=== PATIENT | female | born 2000 | race Caucasian/White ===

== ENCOUNTER 2020-11-14 13:49 | Emergency (ER) | payer SELFPAY ==
[2020-11-14] MEDS ORDERED: Ketorolac 30 MG/ML SDV IM ONE (14:23)
[2020-11-14] MEDS ORDERED: Diazepam 5 MG Tab PO ONE (14:23)
--- NOTE | 2020-11-14 15:09 | EDM.PDOC ---
ED HPI GENERAL MEDICAL PROBLEM - General Chief Complaint: Back Pain or Injury Stated Complaint: lumbar pain Time Seen by Provider: 11/14/20 14:17 Source of Information: Reports: Patient - History of Present Illness INITIAL COMMENTS - FREE TEXT/NARRATIVE: Izabela is a 20 y/o female who comes to the ER with pain in her low back region. She injured her back while working [place] the [employer] a couple weeks ago. She has been seeing the Ramya Brown PAC at the [facility] and last week was given anti-inflammatories and steroids. On Wednesday she was again seen at the clinic and given Flexeril. Xrays were done at the clinic and nothing found. Today her pain is almost unbearable. She describes it has low pressure in the sacral region and then a "ripping and tearing around her hips". Rates 09/28. Took Ibuprofen 400mg po at 0530 along with a Flexeril at that time. Discussion was had my PCP to have CT. She tried to get into the clinic today, but there were no openings and she was advised to present to the ER. Denies any numbness or tingling in her arms or legs, no loss of bowel or bladder function. Lumbar Pain Score (Numeric/FACES): 7 - Related Data Allergies Allergy/AdvReac Type Severity Reaction Status Date / Time azithromycin [From Zithromax] Allergy Hives Verified 11/14/20 14:19 Penicillins Allergy Hives Verified 11/14/20 14:19 Home Meds: Home Meds Cyclobenzaprine [Flexeril] 10 mg PO Q8H PRN 11/14/20 [History] Non-Formulary Medication [NF Drug] 1 each PO ASDIRECTED 11/14/20 [History] Non-Formulary Medication [NF Drug] 1 each PO ASDIRECTED 11/14/20 [History] traMADol [Ultram] 50 mg PO TID PRN #10 tab 11/14/20 [Rx] Past Medical History Psychiatric History: Reports: None - Past Surgical History HEENT Surgical History: Reports: Oral Surgery Social & Family History - Tobacco Use Tobacco Use Status *Q: Current Every Day Tobacco User Years of Tobacco use: 2 Packs/Tins Daily: 0.3 Review of Systems - Review of Systems Review Of Systems: See Below Constitutional: Reports: No Symptoms Eyes: Reports: No Symptoms Ears: Reports: No Symptoms Nose: Reports: No Symptoms Mouth/Throat: Reports: No Symptoms Respiratory: Reports: No Symptoms Cardiovascular: Reports: No Symptoms GI/Abdominal: Reports: No Symptoms Genitourinary: Reports: No Symptoms Musculoskeletal: Reports: Back Pain Skin: Reports: No Symptoms Neurological: Reports: No Symptoms Psychiatric: Reports: No Symptoms ED EXAM, GENERAL - Physical Exam Exam: See Below General Appearance: Alert, WD/WN, No Apparent Distress (Young adult female.) Ears: Hearing Grossly Normal Throat/Mouth: Normal Inspection, Normal Voice Head: Atraumatic, Normocephalic Respiratory/Chest: No Respiratory Distress, Lungs Clear, Chest Non-Tender Cardiovascular: Normal Peripheral Pulses, Regular Rate, Rhythm, No Murmur GI/Abdominal: Soft, Non-Tender (Female) Exam: Deferred Rectal (Female) Exam: Deferred Back Exam: Normal Inspection, Other (+tenderness noted over SI joints). No: CVA Tenderness (L), CVA Tenderness (R), Vertebral Tenderness Extremities: Normal Inspection, Normal Range of Motion, No Pedal Edema, Normal Capillary Refill Neurological: Alert, Oriented, CN II-XII Intact, Normal Cognition, No Motor/Sensory Deficits Psychiatric: Normal Affect, Normal Mood Skin Exam: Warm, Dry, Intact, Normal Color Course - Vital Signs Text/Narrative:: 1418 The patient was seen by the [employer]. She was given Toradol 30mg IM and Valium 10mg po. Ramya Brown PA-C contacted and confirmed that other than xrays, no further imaging had been set up for patient. CT Thoracic and Lumbar Spine WO ordered. 1545 Still rates pain 5/[address] results pending. Fentanyl 100mcg IM for pain given. [address] results from [place] [facility], no acute findings. Feeling better now after the Fentanyl. Discussed possibility of need for MRI. Will have pt continue plan as by PCP with PT, anti-inflammatories, & muscle relaxers. She was given written instructions and then left the ER in stable condition. Last Recorded V/S: Last Vital Signs Temp 37.1 C 11/14/20 13:55 Pulse 120 H 11/14/20 13:55 Resp 16 11/14/20 13:55 BP 125/78 11/14/20 13:55 Pulse Ox 99 11/14/20 13:55 - Orders/Labs/Meds Orders: Active Orders 24 hr Category Date Time Status Lumbar Spine wo Cont [CT] Stat Exams 11/14/20 14:44 Taken Thoracic Spine wo Cont [CT] Stat Exams 11/14/20 14:44 Taken fentaNYL [Sublimaze] Med 11/14/20 15:45 Once 100 mcg IM ONETIME ONE Meds: Medications Discontinued Medications Generic Name Dose Route Start Last Admin Trade Name Freq PRN Reason Stop Dose Admin Diazepam 10 mg 11/14/20 14:23 11/14/20 14:40 Diazepam 5 Mg Tab PO 11/14/20 14:24 10 mg ONETIME ONE Administration Ketorolac Tromethamine 30 mg 11/14/20 14:23 11/14/20 14:39 Ketorolac 30 Mg/Ml Sdv IM 11/14/20 14:24 30 mg ONETIME ONE Administration - Radiology Interpretation Free Text/Narrative:: CT T Spine/L Spine=negative (See final reports) Departure - Departure Time of Disposition: 16:15 Disposition: Home, Self-Care 01 Condition: Good Clinical Impression: Acute low back pain Qualifiers: Back pain laterality: bilateral Sciatica presence: without sciatica Qualified Code(s): M54.5 - Low back pain - Discharge Information *PRESCRIPTION DRUG MONITORING PROGRAM REVIEWED*: Yes *COPY OF PRESCRIPTION DRUG MONITORING REPORT IN PATIENT KADEN: Not Applicable Prescriptions: traMADol [Ultram] 50 mg PO TID PRN #10 tab PRN Reason: Pain Instructions: Acute Back Pain, Adult, Managing Pain Without Opioids Referrals: Solange Brown PA-C [Primary Care Provider] - Forms: ED Department Discharge Additional Instructions: -Ibuprofen 200mg 3 tabs orally every 6 hours as needed (Use over the counter meds) -Cyclobenzaprine as prescribed by your PCP -Acetaminophen 325mg 3 tablets oral every 6 hours (Use over the counter meds) -Tramadol 50mg oral three times a day as needed for severe pain #10(Rx) -Ice or heat applied to the area as needed -Rest, Increase activity as able. Follow activity/work instructions per PAC. Aime -Follow up with your Primary Care Provider to arrange further diagnostic testing if the pain persists. Keep your upcoming PT appt. -Return to the ER if any other concerns Sepsis Event Note (ED) - Evaluation Sepsis Screening Result: No Definite Risk - Focused Exam Vital Signs: Vital Signs Temp Pulse Resp BP Pulse Ox 11/14/20 13:55 37.1 C 120 H 16 125/78 99 - Problem List & Annotations (1) Acute low back pain SNOMED Code(s): 029154938 Code(s): M54.5 - LOW BACK PAIN Status: Acute Current Visit: Yes Annotation/Comment:: -CT negative in ER -Continue meds as prescribed by PCP. Will add Tramadol for severe pain. -PT appt set up -Continue care with PCP and may need MRI if pain persists Qualifiers: Back pain laterality: bilateral Sciatica presence: without sciatica Qualified Code(s): M54.5 - Low back pain - My Orders Last 24 Hours: My Active Orders 11/14/20 14:44 Lumbar Spine wo Cont [CT] Stat Thoracic Spine wo Cont [CT] Stat 11/14/20 15:45 fentaNYL [Sublimaze] 100 mcg IM ONETIME ONE - Assessment/Plan Last 24 Hours: My Active Orders 11/14/20 14:44 Lumbar Spine wo Cont [CT] Stat Thoracic Spine wo Cont [CT] Stat 11/14/20 15:45 fentaNYL [Sublimaze] 100 mcg IM ONETIME ONE Plan: See below
[2020-11-14] MEDS ORDERED: fentaNYL 100 MCG/2 ML SDV IM ONE (15:45)
== END 2020-11-14 16:30 | disposition home or self-care (01) ==
LOC: LL.ED 13:49
DX: M54.5 Low back pain (principal); Z88.1 Allergy status to other antibiotic agents; Z88.0 Allergy status to penicillin; Z72.0 Tobacco use
CPT/HCPCS: 72128; 72131; 96372; 99283; 99283-25; A9270-GY; J1885; J3010

== ENCOUNTER 2021-07-20 17:06 | Observation (INO) | payer MEDICAID ==
[2021-07-20] MEDS ORDERED: Lactated Ringers 1,000 ML IV SCH ×2 (17:30→19:15)
[2021-07-20 18:09] LABS: CHLORIDE,CL 103 mmol/L (98-107); SODIUM,NA 139 mmol/L (136-145)
[2021-07-20] MEDS ORDERED: Ondansetron 4 MG/2 ML SDV IVPUSH ONE (18:58)
[2021-07-20] MEDS ORDERED: Ondansetron 4 MG/2 ML SDV ONE (19:06)
[2021-07-20] MEDS ORDERED: Non-Formulary Medication 1 Each (Propranolol [Inderal] 10 MG Tablet) PO PRN (20:05)
[2021-07-21] MEDS ORDERED: Ondansetron 4 MG Tab.DIS PO PRN (01:05)
[2021-07-21] MEDS ORDERED: Acetaminophen 325 MG Tab PO PRN (01:05)
[2021-07-21] MEDS: Lactated Ringers 1,000 ML IV SCH ×2 (01:25→09:51)
[2021-07-21 07:29] LABS: ANION GAP 10.1 meq/L (7-15); CHLORIDE,CL 103 mmol/L (98-107); SODIUM,NA 138 mmol/L (136-145)
[2021-07-21] MEDS ORDERED: Non-Formulary Medication 1 Each (Fluoxetine Hcl [Fluoxetine Hcl] 40 MG Capsule) PO SCH (08:00)
[2021-07-21] MEDS ORDERED: FLUoxetine 20 MG Cap PO SCH (08:00)
[2021-07-21] MEDS ORDERED: Magnesium Sulfate/Water 2 GM in Premix Bag 1 BAG IV ONE (09:03)
[2021-07-21] MEDS ORDERED: Potassium Chloride 20 MEQ Tab.ER PO ONE (09:04)
== END 2021-07-21 13:55 | disposition home or self-care (01) ==
LOC: LL.ED 17:06 → MERGE 20:00 → LL.MS 20:00
PROVIDERS: ADMIT Hospitalist; ATTEND Hospitalist
DX: R19.7 Diarrhea, unspecified (principal); R11.2 Nausea with vomiting, unspecified; F41.8 Other specified anxiety disorders; F17.210 Nicotine dependence, cigarettes, uncomplicated; E86.1 Hypovolemia; I95.89 Other hypotension; Z88.0 Allergy status to penicillin; Z88.8 Allergy status to other drugs, medicaments and biological substances; Z79.899 Other long term (current) drug therapy
CPT/HCPCS: 36415; 80048; 80053; 81003; 83605; 83690; 83735; 84703; 85025; 85027; 87493; 96374; 99284-25; A9270-GY; J2405; J3475; J7120

== ENCOUNTER 2022-10-07 13:11 | Emergency (ER) | payer SELFPAY ==
[2022-10-07 13:38] LABS: BASOPHILS ABSOLUTE AUTO 0.04 K/uL (0.00-0.20); BASOPHILS PERCENT AUTO 0.4 % (0.0-2.0); EOSINOPHILS PERCENT AUTO 0.9 % (0.0-5.0); HEMATOCRIT 35.8 % (34.0-46.0); HEMOGLOBIN 12.1 g/dL (11.7-15.5); LYMPHOCYTES ABSOLUTE AUTO 2.29 K/uL (0.50-3.50); LYMPHOCYTES PERCENT AUTO 20.1 % (10.0-50.0); MEAN CORPUSCULAR HEMOGLOBIN 28.9 pg (28.2-33.3); MEAN CORPUSCULAR HGB CONC 33.8 g/dL (31.7-36.0); MEAN CORPUSCULAR VOLUME 85.4 fL (84.0-98.0); MONOCYTES ABSOLUTE AUTO 0.92 K/uL (0.00-1.00); MONOCYTES PERCENT AUTO 8.1 % (2.0-14.0); NEUTROPHILS ABSOLUTE AUTO 8.06 K/uL (1.40-7.00); NEUTROPHILS PERCENT AUTO 70.5 % (45.0-80.0); PLATELET COUNT,PLT 282 K/uL (150-350); RED BLOOD CELL COUNT 4.19 M/uL (3.77-5.09); RED CELL DISTRIBUTION WIDTH 12.8 % (11.2-14.1); WHITE BLOOD CELL COUNT,WBC 11.4 K/uL (4.0-10.2)
[2022-10-07] MEDS ORDERED: hydrOXYzine HCl 25 MG Tab PO ONE (13:40)
[2022-10-07 13:48] LABS: APPEARANCE,URINE CLEAR; BILIRUBIN,URINE NEGATIVE (NEGATIVE); COLOR,URINE YELLOW; GLUCOSE,URINE NEGATIVE (NEGATIVE); KETONES,URINE NEGATIVE (NEGATIVE); LEUKOCYTE ESTERASE,URINE NEGATIVE (NEGATIVE); NITRITE,URINE NEGATIVE (NEGATIVE); OCCULT BLOOD,URINE NEGATIVE (NEGATIVE); PROTEIN,URINE 30 mg/dL (NEGATIVE); UROBILINOGEN,URINE 0.2 E.U./dL (0.2-1.0)
[2022-10-07 13:54] LABS: ALANINE AMINOTRANSFERASE,ALT 12 U/L (12-78); ALBUMIN 3.1 g/dL (3.4-5.0); ALKALINE PHOSPHATASE 66 IU/L (46-116); ANION GAP 6.7 meq/L (7-15); ASPARTATE AMNIOTRANSFERASE,AST 16 U/L (15-37); BILIRUBIN TOTAL 0.2 mg/dL (0.2-1.0); BLOOD UREA NITROGEN,BUN 6 mg/dL (7-18); CALCIUM 9.2 mg/dL (8.5-10.1); CARBON DIOXIDE,CO2 26.3 mmol/L (21.0-32.0); CHLORIDE,CL 105 mmol/L (98-107); CREATININE 0.62 mg/dL (0.51-1.17); GLUCOSE RANDOM 110 mg/dL (70-99); POTASSIUM,K 3.5 mmol/L (3.5-5.1); PROTEIN TOTAL,TP 6.8 g/dL (6.4-8.2); SODIUM,NA 138 mmol/L (136-145)
[2022-10-07 13:59] LABS: ESTIMATED GFR 128 mL/min (>=60)
[2022-10-07 14:00] LABS: EPITHELIAL CELLS,URINE FEW /LPF; OTHER CRYSTALS,URINE MANY /HPF; RBC,URINE 0-5 /HPF; WBC,URINE 0-5 /HPF
== END 2022-10-07 16:00 | disposition home or self-care (01) ==
LOC: LL.ED 13:11
DX: O99.891 Other specified diseases and conditions complicating pregnancy (principal); R51.9 Headache, unspecified; Z3A.14 14 weeks gestation of pregnancy; Z88.0 Allergy status to penicillin; Z88.1 Allergy status to other antibiotic agents
CPT/HCPCS: 36415; 80053; 81001; 85025; 99284; A9270-GY

== ENCOUNTER 2024-02-15 04:47 | Emergency (ER) | payer MEDICAID ==
[2024-02-15] MEDS: Take Home: Ketorolac 10 MG Tab, 4 Tab Pack PO ONE (05:19)
[2024-02-15] MEDS: Take Home: traMADol 50 MG, 4 Tab Pack PO ONE (05:19)
[2024-02-15] MEDS: Ketorolac 30 MG/ML SDV IM ONE (05:42)
== END 2024-02-15 05:45 | disposition home or self-care (01) ==
LOC: LL.ED 04:47
DX: O20.9 Hemorrhage in early pregnancy, unspecified (principal); Z3A.01 Less than 8 weeks gestation of pregnancy; Z79.899 Other long term (current) drug therapy; Z88.0 Allergy status to penicillin; Z88.1 Allergy status to other antibiotic agents
CPT/HCPCS: 99283; A9270-GY